=== PATIENT | male | born 1985 | race American Indian/Alaskan Native ===

== ENCOUNTER 2019-09-02 19:46 | Emergency (ER) | payer SELFPAY ==
[2019-09-02 19:59] VITALS: BP 159/99
[2019-09-02] MEDS ORDERED: DIPHtheria,PERTUSSIS(ACELL),TETANUS VACCINE/PF 0.5 ML VIAL IM ONE (21:08)
--- NOTE | 2019-09-02 21:11 | Event Note ---
ED Screening Note Date of service: 09/02/19 Time: 21:09 ED Screening Note: Patient complains of left-sided headache and right wrist pain after a fall yesterday. He also states his knees are hurting bilaterally however he has a normal gait and range of motion's of the knees bilaterally Abrasions are noted to the right hand Patient reports he fell through a rail and may have hit his head on concrete He denies any loss of consciousness, dizziness, vision changes, or nausea/vomiting This initial assessment/diagnostic orders/clinical plan/treatment(s) is/are subject to change based on patients health status, clinical progression and re- assessment by fellow clinical providers in the ED. Further treatment and workup at subsequent clinical providers discretion. Patient/guardian urged not to elope from the ED as their condition may be serious if not clinically assessed and managed. Initial orders include: Tetanus vaccination X-ray CT head
--- NOTE | 2019-09-02 21:37 | Emergency Department Report ---
ED Fall HPI - General Chief Complaint: Fall Stated Complaint: FALL INJURY Time Seen by Provider: 09/02/19 21:05 Source: patient Mode of arrival: Ambulatory - History of Present Illness Initial Comments: Patient complains of left-sided headache and right wrist pain after a fall yesterday. He also states his knees are hurting bilaterally however he has a normal gait and range of motion's of the knees bilaterally Abrasions are noted to the right hand Patient reports he fell through a rail and may have hit his head on concrete He denies any loss of consciousness, dizziness, vision changes, or nausea/vomiting MD Complaint: fall - Related Data Previous Rx's Medication Instructions Recorded Last Taken Type Ibuprofen [Motrin 600 MG tab] 600 mg PO Q8H PRN #21 tablet 09/02/19 Unknown Rx Allergies Allergy/AdvReac Type Severity Reaction Status Date / Time No Known Allergies Allergy Verified 09/02/19 19:58 ED Review of Systems ROS: Stated complaint: FALL INJURY Other details as noted in HPI ED Past Medical Hx - Past Medical History Previous Medical History?: No - Surgical History Past Surgical History?: Yes Additional Surgical History: Left metarasal screw. - Medications Home Medications: Home Medications Medication Instructions Recorded Confirmed Last Taken Type Ibuprofen [Motrin 600 MG tab] 600 mg PO Q8H PRN #21 tablet 09/02/19 Unknown Rx ED Physical Exam - General Limitations: No Limitations ED Course Vital Signs 09/02/19 19:56 Temperature 98.7 F Pulse Rate 63 Respiratory 18 Rate Blood Pressure 159/99 O2 Sat by Pulse 99 Oximetry ED Medical Decision Making - Radiology Data Radiology results: report reviewed Referring Physician:ÁNGEL KAPLANPatient Name:ALEXIS LUCIAPatient ID:[id number] of :[id number]:MaleAccession:[id number] Date:[id number] Status:Finalized Findings [facility] [address] [place] [address] Cat Scan Report Signed Patient: ALEXIS LUCIA MR#: [id number] : 1985 Acct:[id number] Age/Sex: 34 / M ADM Date: 09/02/19 Loc: ED Attending Dr: Ordering Physician: ÁNGEL KAPLAN Date of Service: 09/02/19 Procedure(s): CT head/brain wo con Accession Number(s): [id number] cc: ÁNGEL KAPLAN CT HEAD WITHOUT CONTRAST INDICATION: Left sided pain after head injury. No L.O.C., Fell off a banister TECHNIQUE: All CT scans at this location are performed using CT dose reduction for ALARA by means of automated exposure control. COMPARISON: None available. FINDINGS: BRAIN: No hemorrhage or mass effect are seen. No evidence of acute infarction is noted. ORBITS: Normal as visualized. SOFT TISSUES OF HEAD: Normal. CALVARIUM: Normal. VISUALIZED PARANASAL SINUSES AND MASTOID AIR CELLS: Clear. ADDITIONAL FINDINGS: None. IMPRESSION: No acute intracranial abnormality. Signer Name: Chris Montoya MD Signed: 09/02/2019 10:30 PM Workstation Name: [id number] Transcribed By: BARBARA Dictated By: Chris Montoya MD Electronically Authenticated By: Chris Montoya MD Signed Date/Time: 09/02/192229 DD/ 25 TD/TT: Referring Physician:ÁNGEL KAPLANPatient Name:ALEXIS LUCIAPatient ID:[id number] of :[id number]:MaleAccession:[id number] Date:0884-10-64Rfsadd Status:Finalized Findings [facility] [address] [place] [address] XRay Report Signed Patient: ALEXIS LUCIA MR#: [id number] : 1985 Acct:[id number] Age/Sex: 34 / M ADM Date: 09/02/19 Loc: ED Attending Dr: Ordering Physician: ÁNGEL KAPLAN Date of Service: 09/02/19 Procedure(s): XR wrist 3+V RT Accession Number(s): [id number] cc: ÁNGEL KAPLAN Fluoro Time In Minutes: RIGHT WRIST 4 VIEWS 2142 INDICATION: pain after injury COMPARISON: None available. FINDINGS: No fractures or dislocations are seen. Artifact overlies the wrist. Signer Name: Chris Montoya MD Signed: 09/02/2019 10:10 PM Workstation Name: [id number] Transcribed By: BARBARA Dictated By: Chris Montoya MD Electronically Authenticated By: Chris Montoya MD Signed Date/Time: 09/02/192209 DD/ 2209 TD/TT: - Medical Decision Making Patient complains of left-sided headache and right wrist pain after a fall yesterday. He also states his knees are hurting bilaterally however he has a normal gait and range of motion's of the knees bilaterally Abrasions are noted to the right hand Patient reports he fell through a rail and may have hit his head on concrete He denies any loss of consciousness, dizziness, vision changes, or nausea/vomiting Patient is taken nothing for pain. CT and x-ray of right wrist are negative. I encourage patient to take ibuprofen for pain as he has taken nothing. Critical care attestation.: If time is entered above; I have spent that time in minutes in the direct care of this critically ill patient, excluding procedure time. ED Disposition Clinical Impression: Right wrist pain Fall Qualifiers: Encounter type: initial encounter Qualified Code(s): W19.XXXA - Unspecified fall, initial encounter Headache Qualifiers: Headache type: unspecified Headache chronicity pattern: acute headache Intractability: intractable Qualified Code(s): R51 - Headache Back pain Qualifiers: Back pain location: low back pain Chronicity: acute Back pain laterality: unspecified Sciatica presence: without sciatica Qualified Code(s): M54.5 - Low back pain Bilateral knee pain Qualifiers: Chronicity: acute Qualified Code(s): M25.561 - Pain in right knee; M25.562 - Pain in left knee Disposition: DC-01 TO HOME OR SELFCARE Is pt being admited?: No Does the pt Need Aspirin: No Condition: Stable Additional Instructions: X-ray and CT is negative for any acute findings. I recommend taking ibuprofen for pain management increase your fluid intake. Follow-up with your primary care provider if your symptoms persist. Prescriptions: Ibuprofen [Motrin 600 MG tab] 600 mg PO Q8H PRN #21 tablet PRN Reason: Pain Referrals: [facility]IMARY [facility]EM[facility] [Primary Care Provider] - 3-5 Days [facility] [Provider Group] - 3-5 Days
--- NOTE | 2019-09-02 22:15 | XRay Report ---
RIGHT WRIST 4 VIEWS 2141 INDICATION: pain after injury COMPARISON: None available. FINDINGS: No fractures or dislocations are seen. Artifact overlies the wrist. Signer Name: Chris Montoya MD Signed: 09/02/2019 10:10 PM Workstation Name: [id number]
--- NOTE | 2019-09-02 22:34 | Cat Scan Report ---
CT HEAD WITHOUT CONTRAST INDICATION: Left sided pain after head injury. No L.O.C., Fell off a banister TECHNIQUE: All CT scans at this location are performed using CT dose reduction for ALARA by means of automated exposure control. COMPARISON: None available. FINDINGS: BRAIN: No hemorrhage or mass effect are seen. No evidence of acute infarction is noted. ORBITS: Normal as visualized. SOFT TISSUES OF HEAD: Normal. CALVARIUM: Normal. VISUALIZED PARANASAL SINUSES AND MASTOID AIR CELLS: Clear. ADDITIONAL FINDINGS: None. IMPRESSION: No acute intracranial abnormality. Signer Name: Chris Montoya MD Signed: 09/02/2019 10:30 PM Workstation Name: [id number]
== END 2019-09-02 23:42 | disposition home or self-care (01) ==
LOC: ED 19:46
DX: R51 Headache (principal); M25.531 Pain in right wrist; M25.561 Pain in right knee; M25.562 Pain in left knee; W19.XXXA Unspecified fall, initial encounter; Y93.89 Activity, other specified; Y92.89 Other specified places as the place of occurrence of the external cause; Y99.8 Other external cause status
CPT/HCPCS: 70450; 90471; 90715